=== PATIENT | male | born 1960 | race Caucasian/White ===

== ENCOUNTER 2019-10-10 09:00 | Emergency (ER) | payer OTHER ==
[~2019-10-10] VITALS: Ht 165.1 cm; Wt 72.6 kg
[2019-10-10] MEDS ORDERED: LISINOPRIL2.5 MG PO (09:13)
[2019-10-10 09:36] LABS: INFLUENZA A ANTIGEN Negative (Negative); INFLUENZA B ANTIGEN Negative (Negative)
[2019-10-10] MEDS ORDERED: PREDNISONE 20 M20 M1 PO (09:38)
[2019-10-10] MEDS ORDERED: ZPAK PO (09:38)
[2019-10-10] MEDS ORDERED: ZOFRAN ODT4 MG SUBLING (09:38)
[2019-10-10 10:00] VITALS: BP 149/91
== END 2019-10-10 10:00 | disposition home or self-care (01) ==
LOC: M.ERS 09:00
PROVIDERS: Family Medicine
DX: J40 Bronchitis, not specified as acute or chronic (principal); B34.9 Viral infection, unspecified; I10 Essential (primary) hypertension